=== PATIENT | female | born 2000 | race Hispanic/Latino ===

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

== ENCOUNTER 2018-12-07 08:37 | Emergency (ER) | payer OTHER | END 2018-12-07 09:34 | disposition home or self-care (01) | LOC: EDH 08:37 | DX: J06.9 Acute upper respiratory infection, unspecified (principal); Z72.0 Tobacco use ==

== ENCOUNTER 2020-10-27 20:10 | Emergency (ER) | payer OTHER ==
[2020-10-27 20:39] LABS: APPEARANCE,URINE CLOUDY (CLEAR); BILIRUBIN,URINE MODERATE (NEGATIVE); COLOR,URINE YELLOW (YELLOW); GLUCOSE, URINE (UA) NEGATIVE (NEGATIVE); KETONES,URINE >=80 mg/dL (NEGATIVE); LEUKOCYTE ESTERASE ,URINE MODERATE (NEGATIVE); NITRATE,URINE NEGATIVE (NEGATIVE); OCCULT BLOOD,URINE SMALL (NEGATIVE); PROTEIN,URINE 100 mg/dL (NEGATIVE)
[2020-10-27] MEDS ORDERED: ALBUTEROL INHALER 90MCG/INH IH ONE (20:41)
[2020-10-27 20:42] LABS: HCG,QUAL RESULT POSITIVE (NEGATIVE)
[2020-10-27 20:47] LABS: BACTERIA,URINE Moderate /HPF (None Seen); MUCUS,URINE Many LPF (None Seen); SQUAMOUS EPITHELIAL CELL,UR Moderate /HPF (0-2)
[2020-10-27 20:48] LABS: AMPHET/METH SCREEN,URINE NEGATIVE (NEGATIVE); BARBITURATE SCREEN, URINE NEGATIVE (NEGATIVE); BENZODIAZEPINES SCREEN,URINE NEGATIVE (NEGATIVE); CANNABINOID SCREEN,URINE POSITIVE (NEGATIVE); COCAINE SCREEN,URINE POSITIVE (NEGATIVE); OPIATE SCREEN,URINE NEGATIVE (NEGATIVE); PHENCYCLIDINE SCREEN,URINE NEGATIVE (NEGATIVE)
[2020-10-27] MEDS ORDERED: SODIUM CHLORIDE 0.9% 1000ML 1,000 ML IV ONE (21:23)
[2020-10-27] MEDS ORDERED: ONDANSETRON HCL 4 MG/2 ML VIAL ONE (21:23)
[2020-10-27] MEDS ORDERED: ACETAMINOPHEN EXTRA STRENGTH 500 MG TABLET ONE (22:28)
[2020-10-27] MEDS ORDERED: AMOXICILLIN 500 MG CAPSULE PO ONE (23:00)
[2020-10-28 00:08] LABS: POTASSIUM 3.1 mmol/L (3.5-5.1)
[2020-10-28 00:09] LABS: BILIRUBIN,TOTAL 0.4 mg/dL (0.2-1.0); CREATININE 0.5 mg/dL (0.5-1.5); TOTAL PROTEIN, SERUM 6.9 g/dL (6.0-8.3)
[2020-10-28 00:10] LABS: ALBUMIN 3.5 g/dL (3.5-5.0)
[2020-10-28 00:32] LABS: BASOPHILS % (AUTO) 0.1 % (0.0-5.0); EOSINOPHILS % (AUTO) 0.1 % (0.0-8.0); HEMATOCRIT 42.6 % (36-48); LYMPHOCYTES % (AUTO) 17.7 % (21.0-51.0); MEAN CORPUSCULAR HEMOGLOBIN 31.5 pg (27.0-33.0); MEAN CORPUSCULAR HGB CONC 35.7 g/dL (32.0-36.0); MEAN CORPUSCULAR VOLUME 88.2 fL (80-100); MONOCYTES % (AUTO) 5.5 % (3.0-13.0); NEUTROPHILS % (AUTO) 76.2 % (40.0-77.0); PLATELET COUNT (AUTO) 357 K/uL (130-400); RED BLOOD CELL COUNT(AUTO) 4.83 MIL/uL (4.00-5.50); WHITE BLOOD COUNT (AUTO) 14.2 K/uL (4.8-10.8)
== END 2020-10-27 23:30 | disposition home or self-care (01) ==
LOC: EDH 20:10
DX: O21.0 Mild hyperemesis gravidarum (principal); O23.11 Infections of bladder in pregnancy, first trimester; O99.511 Diseases of the respiratory system complicating pregnancy, first trimester; R06.2 Wheezing; Z20.828 Contact with and (suspected) exposure to other viral communicable diseases; Z72.0 Tobacco use; Z3A.10 10 weeks gestation of pregnancy
CPT/HCPCS: 76705; 76801; 80305; 81001; 81025; 85025; 87088; 87426; 96361; 96374; 99285; J2405; J7030; U0003; 36415; 80053; 83690; 84702

== ENCOUNTER 2023-05-08 13:53 | Observation (INO) | payer MEDICAID, OTHER ==
[~2023-05-08] VITALS: Ht 149.9 cm; Wt 71.7 kg
[2023-05-08 14:42] LABS: APPEARANCE,URINE CLEAR (CLEAR); BILIRUBIN,URINE NEGATIVE (NEGATIVE); GLUCOSE, URINE (UA) NEGATIVE (NEGATIVE); KETONES,URINE NEGATIVE (NEGATIVE); LEUKOCYTE ESTERASE ,URINE NEGATIVE Leu/uL (NEGATIVE); NITRATE,URINE NEGATIVE (NEGATIVE); OCCULT BLOOD,URINE NEGATIVE (NEGATIVE); PH,URINE 6.5 (5.0-8.0); PROTEIN,URINE NEGATIVE (NEGATIVE); UROBILINOGEN,URINE 0.2 mg/dL (0.2-1.0)
[2023-05-08 14:46] LABS: COLOR,URINE LIGHT-YELLOW (YELLOW)
[2023-05-08 14:55] LABS: AMPHET/METH SCREEN,URINE NEGATIVE (NEGATIVE); BARBITURATE SCREEN, URINE NEGATIVE (NEGATIVE); BENZODIAZEPINES SCREEN,URINE NEGATIVE (NEGATIVE); CANNABINOID SCREEN,URINE NEGATIVE (NEGATIVE); COCAINE SCREEN,URINE NEGATIVE (NEGATIVE); OPIATE SCREEN,URINE NEGATIVE (NEGATIVE); PHENCYCLIDINE SCREEN,URINE NEGATIVE (NEGATIVE)
[2023-05-08 15:12] VITALS: BP 126/58
== END 2023-05-08 15:48 | disposition home or self-care (01) ==
LOC: EDH 13:53 → LDH 13:54
PROVIDERS: ADMIT Obstetrics & Gynecology; ATTEND Obstetrics & Gynecology
DX: O26.893 Other specified pregnancy related conditions, third trimester (principal); N89.8 Other specified noninflammatory disorders of vagina; O60.03 Preterm labor without delivery, third trimester; Z3A.35 35 weeks gestation of pregnancy; Z79.899 Other long term (current) drug therapy
CPT/HCPCS: 59025; 80305; 81003; G0378 ×2; G0379

== ENCOUNTER 2023-05-15 01:22 | Observation (INO) | payer MEDICAID, OTHER ==
[~2023-05-15] VITALS: Ht 149.9 cm; Wt 73.5 kg
[2023-05-15 01:23] VITALS: BP 140/82
[2023-05-15 02:01] LABS: APPEARANCE,URINE CLEAR (CLEAR); BILIRUBIN,URINE NEGATIVE (NEGATIVE); COLOR,URINE COLORLESS (YELLOW); GLUCOSE, URINE (UA) NEGATIVE (NEGATIVE); KETONES,URINE NEGATIVE (NEGATIVE); LEUKOCYTE ESTERASE ,URINE NEGATIVE Leu/uL (NEGATIVE); NITRATE,URINE NEGATIVE (NEGATIVE); OCCULT BLOOD,URINE NEGATIVE (NEGATIVE); PH,URINE 6.5 (5.0-8.0); PROTEIN,URINE NEGATIVE (NEGATIVE); UROBILINOGEN,URINE 0.2 mg/dL (0.2-1.0)
[2023-05-15 02:07] LABS: AMPHET/METH SCREEN,URINE NEGATIVE (NEGATIVE); BARBITURATE SCREEN, URINE NEGATIVE (NEGATIVE); BENZODIAZEPINES SCREEN,URINE NEGATIVE (NEGATIVE); CANNABINOID SCREEN,URINE NEGATIVE (NEGATIVE); COCAINE SCREEN,URINE NEGATIVE (NEGATIVE); OPIATE SCREEN,URINE NEGATIVE (NEGATIVE); PHENCYCLIDINE SCREEN,URINE NEGATIVE (NEGATIVE)
[2023-05-15] MEDS ORDERED: LACTATED RINGERS 1000ML 1,000 ML IV PRN (03:00)
[2023-05-15] MEDS: AMPICILLIN 2GM+NS 100ML IV SCH ×2 (03:13→09:03)
[2023-05-15] MEDS: LACTATED RINGERS 1000ML 1,000 ML IV SCH ×2 (03:13→03:27)
[2023-05-15 03:20] LABS: HEMATOCRIT 32.7 % (36-48); MEAN CORPUSCULAR HGB CONC 31.2 g/dL (32.0-36.0); MEAN CORPUSCULAR VOLUME 80.1 fL (79-99); PLATELET COUNT (AUTO) 315 K/uL (130-400); RED BLOOD CELL COUNT(AUTO) 4.08 MIL/uL (4.00-5.50); RED CELL DISTRIBUTION WIDTH 17.4 % (11.0-15.5); WHITE BLOOD COUNT (AUTO) 11.1 K/uL (4.8-10.8)
[2023-05-15 13:22] LABS: RAPID PLASMA REAGIN NONREACTIVE (NONREACTIVE)
== END 2023-05-15 11:30 | disposition home or self-care (01) ==
LOC: EDH 01:22 → LDH 01:23
PROVIDERS: ADMIT Obstetrics & Gynecology; ATTEND Obstetrics & Gynecology
DX: O62.9 Abnormality of forces of labor, unspecified (principal); Z3A.36 36 weeks gestation of pregnancy; Z79.899 Other long term (current) drug therapy
CPT/HCPCS: 96376; 96361; 96365; 59025; 80305; 85027; 86592; 86850; 86900; 86901; 87340; 86701; 87390; 81003; 36415; 76805; G0378 ×9; J7120; J0290 ×2

== ENCOUNTER 2024-09-21 20:54 | Emergency (ER) | payer MEDICAID ==
[~2024-09-21] VITALS: Ht 149.9 cm; Wt 59.0 kg
[2024-09-21 20:56] VITALS: BP 116/73; PULSE 77; RESP 18; TEMP 97.7
[2024-09-21 21:51] LABS: RAPID GROUP A STREP negative (NEGATIVE)
[2024-09-21 21:55] LABS: SARS-CoV-2, RNA, NAAT NEGATIVE SARS CoV-2 (NEGATIVE)
[2024-09-21 22:01] LABS: INFLUENZA TYPE A Negative For Type A (NEGATIVE); INFLUENZA TYPE B Negative For Type B (NEGATIVE)
[2024-09-21] MEDS ORDERED: METH4TAB3 PO (22:05)
[2024-09-21] MEDS ORDERED: AZIT250T9 PO (22:05)
--- NOTE | 2024-09-21 22:06 | ERN ---
General Chief Complaint: Sore Throat Stated Complaint: C/O SORE THROAT, COUGH, CONGESTION Time Seen by MD: 20:59 Time Seen by Midlevel: 20:59 Source: patient History of Present Illness Initial Comments Patient is a 23-year-old female with no significant past medical history presenting for evaluation of a flu-like symptoms that have been ongoing for the last couple of days. Symptoms consist of a sore throat, cough, and congestion. She reports recent sick contacts with her friend who was positive for strep. No other symptoms reported at this time. Allergies: Coded Allergies: No Known Drug Allergies (Unverified Allergy, Unknown, 05/08/23) Home Meds Active Scripts Methylprednisolone (Medrol) 4 Mg Tab.ds.pk, 1 TAB PO AD for 6 Days, #21 TAB 0 Refills 6 on day 1 then reduce by one tablet daily until gone Prov:ELLIOTT WOODS 09/21/24 Azithromycin (Azithromycin) 250 Mg Tablet, 1 TAB PO AD for 5 Days, #6 TAB 0 Refi lls 2 the first day followed by 1 for days 2-5 Prov:ELLIOTT WOODS 09/21/24 Past Medical History Past Medical History: No Pertinent History Past Surgical History: None Family History Family History: Negative Social History Social History: Smokers, Drugs, ETOH Female( History) : 3 Para: 1 Aborts: 1 ROS Dictation CONSTITUTIONAL: Negative except for HPI HEAD/FACE: Negative except for HPI EENT: Negative except for HPI RESPIRATORY: Negative except for HPI GASTROINTESTINAL/ABDOMINAL: Negative except for HPI GENITOURINARY: Negative except for HPI MUSCULOSKELETAL: Negative except for HPI INTEGUMENTARY: Negative except for HPI NEUROLOGICAL/PSYCH: Negative except for HPI HEMATOLOGIC/LYMPHATIC: Negative except for HPI All Systems Negative, Except as noted above. 13 point review of systems assessed and all negative except for above. Physical Exam Physical Exam Dictation Vital Signs reviewed General Appearance: Alert, oriented x 3, no acute distress, well developed, nourished. Head and Face: non-traumatic. Eyes: PERRL, pink conjunctivas, eyelid no trauma, anterior chamber with arcus senilis. Ears: Pinnas intact and no signs of trauma or erythema ear canals clear and no discharge TM no erythema Nose: No discharge, no bleeding. Oropharynx: Mouth normal, tongue pink, pharynx clear,no erythema, tonsils no exudates, no abscesses noted, mucous membrane moist Neck: Supple, non-tender, no thyromegaly, no masses, no JVD, no bruits Breast:Deferred Chest:No tenderness, no crepitus, no paradoxical movement, no retractions Lungs:Clear, well-ventilated, symmetric, no rales, no wheezing, no rhonchi, no stridor, good breath sounds bilaterally Heart: Regular rate, regular rhythm, no murmur, no gallops Vascular: no peripheral edema, Abdomen: Soft, positive bowel sounds, nondistended, no guarding, nontender, no rebound, no masses no hepatomegaly, no splenomegaly, no Emerson's sign, no hernias. Rectal: Deferred Genital: Deferred Neurological: Normal speech, motor function intact, sensory function intact Musculoskeletal: Neck nontender, full range of motion, back nontender, full range of motion, Extremities: nontender, full range of motion Skin: Color pink, dry, no turgor, no rash, no lacerations, no abrasions, no contusions. Lymphatic: Deferred Results Laboratory and Microbiology Lab and Micro Result Laboratory Tests Test 09/21/24 21:01 Influenza Type A Antigen Negative For Type A Influenza Type B Antigen Negative For Type B SARS-CoV-2, RNA, NAAT NEGATIVE SARS CoV-2 Group A Streptococcus Rapid negative (NEGATIVE) Labs Reviewed?: Yes MDM MDM: Differential diagnosis: Upper respiratory infection, viral syndrome, strep pharyngitis There are no social concerns with this patient. Prescription drug management Prescriptions will include: Azithromycin and Medrol pack Medical management and examination interpretation discussions were had by me with other qualified healthcare professionals as indicated for the patient's care. ED Course Orders Procedure Category Date Status Time Covid Rna Naat LAB 09/21/24 Complete 21:00 Rapid (Group A Strep) LAB 09/21/24 Complete 21:00 Influenza Type A & B, LAB 09/21/24 Complete Rapid 21:00 Vital Signs Date Time Temp Pulse Resp B/P (MAP) Pulse Ox O2 Delivery O2 Flow Rate FiO2 09/21/24 20:56 97.7 77 18 116/73 97 Room Air DX & DISP Disposition: Discharge Departure Impression: Primary Impression: Pharyngitis Additional Impression: Upper respiratory infection Condition: Stable Scripts Methylprednisolone (Medrol) 4 Mg Tab.ds.pk 1 TAB PO AD for 6 Days, #21 TAB 0 Refills 6 on day 1 then reduce by one tablet daily until gone Prov: ELLIOTT WOODS 09/21/24 Azithromycin (Azithromycin) 250 Mg Tablet 1 TAB PO AD for 5 Days, #6 TAB 0 Refills 2 the first day followed by 1 for days 2-5 Prov: ELLIOTT WOODS 09/21/24 Additional Instructions: You have tested negative for flu a, flu B, COVID, and strep. I have given you a prescription for azithromycin and a Medrol pack. Please follow up with your primary care provider in 2-3 days for repeat evaluation. You may take Tylenol and Motrin for fever. Return to the ER for any new or worsening symptoms. Referrals: SELF,REFERRAL (PCP) Time of Disposition: 22:04 I have reviewed the case, and I agree with, Diagnosis and Plan I performed the substantive portion of the visit. I have reviewed and personally made and approve the management plan that is documented in the note by myself or the NGOC. I acknowledge full responsibility for the patient's management plan. ELLIOTT WOODS Sep 21, 2024 22:06 HERNAN CHAVIS MD Sep 29, 2024 14:02
== END 2024-09-21 22:17 | disposition home or self-care (01) ==
LOC: EDH 20:54
DX: J06.9 Acute upper respiratory infection, unspecified (principal); F17.200 Nicotine dependence, unspecified, uncomplicated; Z20.822 Contact with and (suspected) exposure to COVID-19
CPT/HCPCS: 87635; 87804; 87880

== ENCOUNTER 2024-11-28 18:40 | Emergency (ER) | payer MEDICAID ==
[~2024-11-28] VITALS: Ht 149.9 cm; Wt 59.0 kg
[~2024-11-28 18:40] MED LIST: AZIT250T9 PO; METH4TAB3 PO
--- NOTE | 2024-11-28 18:45 | ERN ---
ED Note History of Present Illness Stated Complaint: FLU LIKE SYMPTOMS Chief Complaint: Flu Symptoms Time Seen by MD: 18:41 Dictation: PATIENT IS A 24-YEAR-OLD HERE WITH FLU-LIKE SYMPTOMS TO INCLUDE CLEAR RUNNY NOSE, SORE THROAT WITH PAINFUL SWALLOWING, BODY ACHES AND MALAISE, DRY COUGH SHE HAS HAD FOR 2-3 DAYS. SHE HAS TAKEN NOTHING PRIOR TO ARRIVAL FOR PAIN HAS NOT SEEN A DOCTOR BECAUSE SHE DOES NOT HAVE ONE. NO NAUSEA NO VOMITING NO DIARRHEA NO LOSS OF TASTE OR SMELL. Allergies: Coded Allergies: No Known Drug Allergies (Unverified Allergy, Unknown, 05/08/23) Home Meds Active Scripts Amoxicillin/Potassium Clav (Amox Tr-K Clv 875-125 mg Tab) 875 Mg-125 Mg Tablet, 1 EACH PO BID for 7 Days, #14 TAB 0 Refills Prov:YASMEEN BLANCA NP 11/28/24 Methylprednisolone (Medrol) 4 Mg Tab.ds.pk, 1 TAB PO AD for 6 Days, #21 TAB 0 Refills 6 on day 1 then reduce by one tablet daily until gone Prov:ELLIOTT WOODS 09/21/24 Azithromycin (Azithromycin) 250 Mg Tablet, 1 TAB PO AD for 5 Days, #6 TAB 0 Refills 2 the first day followed by 1 for days 2-5 Prov:ELLIOTT WOODS 09/21/24 Past Medical History Past Medical History: No Pertinent History Surgical History: None Family History: Negative Social History: Smokers, Drugs, ETOH : 3 Para: 1 Aborts: 1 RN Note Reviewed/Agreed w/PFSH: Yes Review of System Dictation CONSTITUTIONAL: NEGATIVE EXCEPT FOR HPI FEVER CHILLS HEAD/FACE: NEGATIVE EXCEPT FOR HPI EENT: NEGATIVE EXCEPT FOR HPI CLEAR RHINITIS WITH MILD SORE THROAT RESPIRATORY: NEGATIVE EXCEPT FOR HPI GASTROINTESTINAL/ABDOMINAL: NEGATIVE EXCEPT FOR HPI COUGH GENITOURINARY: NEGATIVE EXCEPT FOR HPI MUSCULOSKELETAL: NEGATIVE EXCEPT FOR HPI MALAISE INTEGUMENTARY: NEGATIVE EXCEPT FOR HPI NEUROLOGICAL/PSYCH: NEGATIVE EXCEPT FOR HPI HEMATOLOGIC/LYMPHATIC: NEGATIVE EXCEPT FOR HPI ALL SYSTEMS NEGATIVE, EXCEPT NOTED ABOVE. 13 POINT REVIEW OF SYSTEMS ASSESSED AND ALL NEGATIVE EXCEPT FOR ABOVE. Initial Vital Sign VS Vital Signs Date Time Temp Pulse Resp B/P (MAP) Pulse Ox O2 Delivery O2 Flow Rate FiO2 11/28/24 18:41 98.4 90 20 120/80 99 Room Air 0 11/28/24 22:03 21 Physical Exam Dictation VITAL SIGNS REVIEWED GENERAL APPEARANCE: ALERT, ORIENTED X 3, MILD ACUTE DISTRESS, WELL DEVELOPED, NOURISHED. HEAD AND FACE: NON-TRAUMATIC. EYES: PERRL, PINK CONJUNCTIVAS, EYELID NO TRAUMA, ANTERIOR CHAMBER WITH ARCUS SENILIS. EARS: PINNAS INTACT AND NO SIGNS OF TRAUMA OR ERYTHEMA EAR CANALS CLEAR AND NO DISCHARGE TM NO ERYTHEMA NOSE: CLEAR DISCHARGE, NO BLEEDING. OROPHARYNX: MOUTH NORMAL, TONGUE PINK, PHARYNX CLEAR MODERATE PHARYNGEAL ERYTHEMA ERYTHEMA, TONSILS NO EXUDATES, NO ABSCESSES NOTED, MUCOUS MEMBRANE MOIST UVULA MIDLINE, VOICE IS CLEAR NECK: SUPPLE, NON-TENDER, NO THYROMEGALY, NO MASSES, NO JVD, NO BRUITS BREAST:DEFERRED CHEST:NO TENDERNESS, NO CREPITUS, NO PARADOXICAL MOVEMENT, NO RETRACTIONS LUNGS:CLEAR, WELL-VENTILATED, SYMMETRIC, NO RALES, NO WHEEZING, NO RHONCHI, NO STRIDOR, GOOD BREATH SOUNDS BILATERALLY HEART: REGULAR RATE, REGULAR RHYTHM, NO MURMUR, NO GALLOPS VASCULAR: NO PERIPHERAL EDEMA, ABDOMEN: SOFT, POSITIVE BOWEL SOUNDS, NONDISTENDED, NO GUARDING, NONTENDER, NO REBOUND, NO MASSES NO HEPATOMEGALY, NO SPLENOMEGALY, NO BATISTA'S SIGN, NO HERNIAS. RECTAL: DEFERRED GENITAL: DEFERRED NEUROLOGICAL: NORMAL SPEECH, MOTOR FUNCTION INTACT, SENSORY FUNCTION INTACT MUSCULOSKELETAL: NECK NONTENDER, FULL RANGE OF MOTION, BACK NONTENDER, FULL RANGE OF MOTION, EXTREMITIES: NONTENDER, FULL RANGE OF MOTION SKIN: COLOR PINK, DRY, NO TURGOR, NO RASH, NO LACERATIONS, NO ABRASIONS, NO CONTUSIONS. LYMPHATIC: DEFERRED Results (Laboratory/Radiology) Laboratory/Radiology Laboratory Tests Test 11/28/24 18:44 Influenza Type A Antigen Negative For Type A Influenza Type B Antigen Negative For Type B SARS-CoV-2 Antigen (Rapid) PRESUMPTIVE NEGATIVE Group A Streptococcus Rapid negative (NEGATIVE) Labs Reviewed?: Yes ED Course ED Course Orders Procedure Category Date Status Time Acetaminophen 500mg PHA 11/28/24 Complete Tab (Tylenol 500mg T 19:00 Rapid (Group A Strep) LAB 11/28/24 Complete 18:42 Covid19 (Sars Antigen LAB 11/28/24 Complete Rapid) 18:42 Influenza Type A & B, LAB 11/28/24 Complete Rapid 18:42 Current Medications Medications (Trade) Dose Ordered Sig/Monisha Route PRN Reason Start Time Stop Time Status Last Admin Dose Admin Acetaminophen (TYLenol 500MG TAB) 1,000 mg ONCE ONCE PO 11/28/24 19:00 11/28/24 19:01 DC 11/28/24 21:56 Vital Signs Date Time Temp Pulse Resp B/P (MAP) Pulse Ox O2 Delivery O2 Flow Rate FiO2 11/28/24 22:03 97.3 79 18 133/66 100 Room Air* 0 21 11/28/24 18:41 98.4 90 20 120/80 99 Room Air 0 2110 labs are negative patient will be discharged home with a acute pharyngitis unspecified with antibiotic prescription see her doctor Medical Decision Making MDM Medical decision-making based on swabs for flu COVID and strep. Patient will be treated based on physical examination for a acute pharyngitis unspecified Given [id number] b.i.d. for seven days Told to see your primary care doctor DX & DISP Disposition: Discharge Departure Impression: Primary Impression: Acute pharyngitis, unspecified Condition: Stable Scripts Amoxicillin/Potassium Clav (Amox Tr-K Clv 875-125 mg Tab) 875 Mg-125 Mg Tablet 1 EACH PO BID for 7 Days, #14 TAB 0 Refills Prov: YASMEEN BLANCA ANNUAL GIVING MANAGER 11/28/24 Additional Instructions: Follow-up with primary care provider in 1 to 2 days. Take medications as directed here in the emergency room. Okay to continue home medications unless otherwise discussed during your visit in the emergency room today. Return to your nearest emergency room if symptoms worsen or if there is no improvement. Call 911 if you need immediate assistance. Take Tylenol or Motrin over-the-co unter as needed and if no contraindications are present. Increase oral hydration. A wound culture or urine culture was ordered here in the emergency room department please follow-up with primary care provider and advise them to get repeat ports from our facility. If you had any Justino wrap/splints that were applied here, please do not remove them until you see your primary care or specialty. Take antibiotics as directed until gone. , increase your water intake. , see your primary care doctor for follow up Referrals: SELF,REFERRAL (PCP) Time of Disposition: 21:12 I have reviewed the case, and I agree with, Diagnosis and Plan ATTESTATION BY PHYSICIAN I PERFORMED THE SUBSTANTIVE PORTION OF THE VISIT. I HAVE REVIEWED AND PERSONALLY MADE AND APPROVED THE MANAGEMENT PLAN THAT IS DOCUMENTED IN THE NOTE BY MYSELF FOR THE A PP. I ACKNOWLEDGED FOR RESPONSIBILITY FOR THE PATIENT'S MANAGEMENT PLAN. YASMEEN BLANCA NP Nov 28, 2024 18:45 ANUSHKA GUZMÁN DO Nov 29, 2024 00:48
[2024-11-28 19:04] LABS: RAPID GROUP A STREP negative (NEGATIVE)
[2024-11-28 19:14] LABS: COVID19 (SARS ANTIGEN RAPID) PRESUMPTIVE NEGATIVE (NEGATIVE); INFLUENZA TYPE A Negative For Type A (NEGATIVE); INFLUENZA TYPE B Negative For Type B (NEGATIVE)
[2024-11-28] MEDS ORDERED: AMOX1TAB16 PO (21:12)
[2024-11-28] MEDS: acetaMINOPHEN 500 MG TABLET PO ONE (21:56)
--- NOTE | 2024-11-28 22:01 | NUR ---
PT LEFT W/O D/C PAPERS, CALLED PT'S GRANDMOTHER. SAID SHE WOULD TELL PT TO COME FOR PAPERWORK, BUT DID NOT KNOW WHAT TIME SHE WOULD COME.
[2024-11-28 22:03] VITALS: BP 133/66; PULSE 79; RESP 18; TEMP 97.3; O2SAT 100
== END 2024-11-28 22:00 | disposition home or self-care (01) ==
LOC: EDH 18:40
DX: J02.9 Acute pharyngitis, unspecified (principal); F17.200 Nicotine dependence, unspecified, uncomplicated; Z20.822 Contact with and (suspected) exposure to COVID-19
CPT/HCPCS: 87426; 87804; 87880; 99283